=== PATIENT | male | born 1950 | race African-American/Black ===

== ENCOUNTER 2019-07-14 16:27 | Inpatient (IN) | payer MEDICARE ==
[~2019-07-14] VITALS: Ht 190.5 cm; Wt 99.8 kg
[2019-07-14 17:39] VITALS: BP 171/81
[2019-07-14 17:43] LABS: HEMATOCRIT 23.5 % (42.0-54.0); MCH 22.5 pg (26.0-34.0); MCHC 30.2 g/dL (31.0-37.0); MCV 74.4 fL (80.0-100.0); MEAN PLATELET VOLUME 9.9 fL (7.4-10.4); PLATELET COUNT 291 10x3/uL (130-400); RBC 3.16 10x6/uL (4.20-6.10); RDW 16.3 % (11.5-14.5); WBC 7.8 10x3/uL (4.8-10.8)
[2019-07-14 17:52] LABS: APTT 42.6 SECONDS (22.8-39.4); INR 1.57 (0.85-1.17); PROTIME 18.2 SECONDS (11.6-15.0)
[2019-07-14 17:58] LABS: ALBUMIN 3.4 g/dL (3.4-5.0); ALKALINE PHOSPHATASE 117 U/L (46-116); ALT (SGPT) 16 U/L (10-68); BILIRUBIN - TOTAL 0.63 mg/dL (0.2-1.3); CALC OSMOLALITY 297 mosm/kg (275-300); CALCIUM 8.2 mg/dL (8.5-10.1); CARBON DIOXIDE 32.7 mmol/L (21.0-32.0); CHLORIDE - SERUM 104 mmol/L (98-107); CREATININE - SERUM 3.2 mg/dL (0.6-1.3); GLUCOSE 141 mg/dL (74-106); POTASSIUM - SERUM 4.1 mmol/L (3.5-5.1); PROTEIN - SERUM 8.5 g/dL (6.4-8.2); SODIUM 143 mmol/L (136-145); UREA NITROGEN 44 mg/dL (7-18); eGFR NON AFRICAN AMERICAN 21 mL/min (90-120)
[2019-07-14 18:08] LABS: HEMOGLOBIN 7.1 g/dL (13.5-17.5)
[2019-07-14 18:09] LABS: CKMB 1.9 U/L (0.0-3.6); CREATINE KINASE 382 UL (21-232); D-DIMER-QUANTITATIVE 7.84 ug/mLFEU (0.20-0.54); MAGNESIUM - SERUM 2.2 mg/dL (1.8-2.4); PRO BNP 7564 pg/mL (0-125); TROPONIN-I < 0.017 ng/mL (0.000-0.060)
[2019-07-14 18:43] LABS: EOSINOPHILS 5 % (0-7); LYMPHOCYTES 37 % (15-50); MONOCYTES 1 % (2-11); NEUTROPHILS 57 % (40-80); PLATELET ESTIMATE NORMAL
--- NOTE | 2019-07-14 19:11 | NUR ---
SPOKE WITH PM CHARGE NURSE TO INFORM HER THAT WE WOULD START ANOTHER IV FOR CTA TEST AND THEN TRANSPORT PATIENT TO INPATIENT ROOM.
--- NOTE | 2019-07-14 19:35 | NUR ---
PT ARRIVES TO ROOM VIA MULTIPLE ASSIST TO PUT IN BED IMEDIATYELY XRAY REMOVED PT FOR TESTS.
--- NOTE | 2019-07-14 20:52 | NUR ---
PT RETURNS TO ROOM CLEANED BED LOW AND CALL LIGHT TELEMETRY APPLIED AND CONSENTS FOR BLOOD WORK GOTTEN
--- NOTE | 2019-07-14 21:12 | NUR ---
BLOOD HAS BEEN INITIATED BY RN
--- NOTE | 2019-07-14 22:56 | NUR ---
PT TOLERATING WELL LCTA AND SKIN WARM AND DRY BLOOD CONTINUES TO INFUSE WITH NO REACTION
[2019-07-15] VITALS: BP 142/80
[2019-07-15 04:30] VITALS: BP 163/70
--- NOTE | 2019-07-15 07:05 | NUR ---
REPORT RECEIVED. HE IS ALERT WITH AT BEDSIDE. O2 ON AT 2L/M PER N/C. CL IN REACH DENIES ANY CURRENT NEEDS RESP EVEN WITHOUT LABOR. SALINE LOCK INTACT TO RIGHT A/C AND LEFT UPPER ARM. BED IN LOWEST POSITION AND LOCKED. CAREPLAN REVIEW DONE WITH SAFETY PRECAUTIONS IN PLACE
[2019-07-15 07:12] LABS: BASOPHILS 0.4 % (0-2); EOSINOPHILS 3.9 % (0-7); IMMATURE GRANULOCYTES 0.4 % (0-5); LYMPHOCYTES 10.5 % (15-50); MCH 22.8 pg (26.0-34.0); MCV 75.9 fL (80.0-100.0); MEAN PLATELET VOLUME 9.5 fL (7.4-10.4); MONOCYTES 24.3 % (2-11); NEUTROPHILS 60.5 % (40-80); PLATELET COUNT 254 10x3/uL (130-400); RBC 3.16 10x6/uL (4.20-6.10); RDW 16.8 % (11.5-14.5); WBC 8.4 10x3/uL (4.8-10.8)
[2019-07-15 07:13] LABS: HEMOGLOBIN 7.2 g/dL (13.5-17.5)
[2019-07-15 07:21] LABS: ALBUMIN 3.2 g/dL (3.4-5.0); ANION GAP 13.6 mmol/L (8-16); BILIRUBIN - TOTAL 0.81 mg/dL (0.2-1.3); CALCIUM 7.9 mg/dL (8.5-10.1); CARBON DIOXIDE 28.9 mmol/L (21.0-32.0); CREATININE - SERUM 2.8 mg/dL (0.6-1.3); POTASSIUM - SERUM 3.5 mmol/L (3.5-5.1); PROTEIN - SERUM 8.1 g/dL (6.4-8.2)
[2019-07-15 09:13] VITALS: BP 187/70
[2019-07-15 13:16] LABS: CHOL - HDL RATIO 1.9 ratio (2.3-4.9); LDL-HDL RATIO 0.7 ratio (1.5-3.5); MAGNESIUM - SERUM 1.9 mg/dL (1.8-2.4); PHOSPHOROUS 4.2 mg/dL (2.5-4.9)
[2019-07-15 13:17] LABS: COMPLEMENT C4 18.7 mg/dL (17.4-52.2)
[2019-07-15 13:36] VITALS: BP 180/95
--- NOTE | 2019-07-15 14:20 | NUR ---
BLOOD STARTED AT THIS TIME MAX WELL REMAINS WITH WHOLE BODY EDEMA. SCROTUM IS ELEVATED UP ON A ROLLED UP TOWEL DUE TO EDEMA
[2019-07-15 14:48] VITALS: BMI 37.2
--- NOTE | 2019-07-15 16:30 | NUR ---
BLOOD IS COMPLETED AT THIS TIME. BUMEX DRIP WAS RESTARTED. VSS HE OFFERS NO C/O
[2019-07-15 18:12] VITALS: BP 151/88
--- NOTE | 2019-07-15 19:10 | NUR ---
EVENING ROUNDS COMPLETE. PT LAYING IN BED. FAMILY AT BEDSIDE. NO SIGNS OF DISTRESS. PT HAS PAIN 7/10 AT THIS TIME. PRN NORCO GIVEN ALREADY AT 1545. PT UNDERSTOOD. PT DENIES ANY NEEDS AT THIS TIME. CL IN REACH. BED IN LOWEST POSITION.
[2019-07-15 20:00] VITALS: BP 175/88
[2019-07-15 21:52] LABS: APPEARANCE CLEAR (CLEAR); BILIRUBIN NEGATIVE (NEGATIVE); COLOR YELLOW (YELLOW); GLUCOSE NEGATIVE (NEGATIVE); KETONE NEGATIVE (NEGATIVE); NITRITE NEGATIVE (NEGATIVE); PROTEIN 1+ mg/dL (NEGATIVE); RED CELLS - URINE 0-5 /hpf (0-5); UROBILINOGEN NORMAL (NORMAL); WHITE CELLS - URINE OCC /hpf (NEGATIVE)
[2019-07-16] VITALS: BP 190/91
--- NOTE | 2019-07-16 01:00 | NUR ---
PAGED DR WETZEL FOR BP OF 185/103. SEE NEW ORDERS AT THIS TIME.
[2019-07-16 04:00] VITALS: BP 135/87
--- NOTE | 2019-07-16 04:40 | NUR ---
DR WETZEL PAGED DUE TO PT COUGHING UP RED TINGED SPUTUM. DR WETZEL ORDERED TO HOLD ELIQUIS AT THIS TIME UNTIL RESTARTED, STAT PT WITH INR.
[2019-07-16 05:38] LABS: BASOPHILS 0.2 % (0-2); EOSINOPHILS 1.6 % (0-7); HEMATOCRIT 26.6 % (42.0-54.0); HEMOGLOBIN 8.1 g/dL (13.5-17.5); IMMATURE GRANULOCYTES 0.5 % (0-5); LYMPHOCYTES 4.8 % (15-50); MCH 23.3 pg (26.0-34.0); MCHC 30.5 g/dL (31.0-37.0); MCV 76.4 fL (80.0-100.0); MEAN PLATELET VOLUME 9.2 fL (7.4-10.4); MONOCYTES 15.5 % (2-11); NEUTROPHILS 77.4 % (40-80); PLATELET COUNT 253 10x3/uL (130-400); RBC 3.48 10x6/uL (4.20-6.10); RDW 16.9 % (11.5-14.5)
[2019-07-16 05:42] LABS: WBC 14.6 10x3/uL (4.8-10.8)
[2019-07-16 05:54] LABS: INR 1.51 (0.85-1.17); PROTIME 17.6 SECONDS (11.6-15.0)
[2019-07-16 06:25] LABS: % SATURATION 8 % (15-55); IRON 30 ug/dl (35-150); TOTAL IRON BIND CAPACITY 362 ug/dl (260-445); UNSAT IRON BIND CAPACITY 332 ug/dl (150-375)
[2019-07-16 06:47] LABS: ALBUMIN 3.3 g/dL (3.4-5.0); ANION GAP 16.7 mmol/L (8-16); BILIRUBIN - TOTAL 1.42 mg/dL (0.2-1.3); CALCIUM 7.8 mg/dL (8.5-10.1); CARBON DIOXIDE 28.8 mmol/L (21.0-32.0); CREATININE - SERUM 2.1 mg/dL (0.6-1.3); LDL-HDL RATIO 0.7 ratio (1.5-3.5); POTASSIUM - SERUM 3.5 mmol/L (3.5-5.1); PROTEIN - SERUM 8.5 g/dL (6.4-8.2); THYROID STIMULATING HORMONE 2.46 uIU/mL (0.36-3.74)
--- NOTE | 2019-07-16 07:21 | NUR ---
REPORT RECEIVED. WILL CONTINUE WITH POC. PT CURRENTLY LYING SUPINE. CALL LIGHT W/I REACH. RR EVEN AND UNLABORED ON 3L 02. BUMEX INFUSING @5ML/HR VIA L.UPPER ARM PIV. NO S/S OF DISTRESS NOTED. PT DENIES ANY NEEDS. WILL CTM.
--- NOTE | 2019-07-16 09:40 | NUR ---
CALLED PHARMACY TO VERIFY THAT AMIODORONE AND BUMEX ARE COMPATIBLE AND THEY ARE BY WAY OF Y-SITE. BEGAN INFUSION OF AMIODORONE @33.3ML/HR OR 1MG/MIN VIA Y-SITE OF LEFT FOREARM PIV. PT MOANS OUT AND C/O N/V. ADMININSTERED ORDERED DOSE OF ZOFRAN. WILL CTM. AT BEDSIDE.
[2019-07-16 10:44] VITALS: BP 189/87
[2019-07-16 12:09] LABS: ANA REFLEX - ANTICHROMATIN ABS 0.3 AI (0.0-0.9); ANA REFLEX - CENTROMERE B ABS <0.2 AI (0.0-0.9); ANA REFLEX - DBL STRANDED DNA <1 IU/mL (0-9); ANA REFLEX - DIRECT Positive (Negative); ANA REFLEX - JO-1 AB <0.2 AI (0.0-0.9); ANA REFLEX - RNP ANTIBODIES 3.4 AI (0.0-0.9); ANA REFLEX - SCL-70 <0.2 AI (0.0-0.9); ANA REFLEX - SJOGRENS AB SSA <0.2 AI (0.0-0.9); ANA REFLEX - SJOGRENS AB SSB <0.2 AI (0.0-0.9); ANA REFLEX - SMITH AB <0.2 AI (0.0-0.9)
--- NOTE | 2019-07-16 12:55 | NUR ---
CHOWDHURY CATHETER PLACED. IMMEDIATE 200ML OF DARK CONCENTRATED URINE RETURNED. PT TOLERATED WELL. SPECIMENS SENT TO LAB. WILL CTM.
[2019-07-16 13:10] LABS: SPE - A/G RATIO 0.7 (0.7-1.7); SPE - ALBUMIN 3.2 g/dL (2.9-4.4); SPE - ALPHA-1 GLOBULIN 0.4 g/dL (0.0-0.4); SPE - ALPHA-2 GLOBULIN 0.8 g/dL (0.4-1.0); SPE - BETA GLOBULIN 1.6 g/dL (0.7-1.3); SPE - GAMMA GLOBULIN 1.8 g/dL (0.4-1.8); SPE - M-SPIKE 0.3 g/dL (Not Observed); SPE - TOTAL PROTEIN 7.9 g/dL (6.0-8.5)
--- NOTE | 2019-07-16 13:29 | NUR ---
I have reviewed this patient and I concur with the Shift Assessment completed by the Licensed Practical Nurse today this shift.
[2019-07-16 13:36] LABS: PRO/CRE RATIO URINE 5.1 mg/g; PROTEIN - URINE 192.1 mg/dL (0.0-11.9)
[2019-07-16 13:56] VITALS: BP 198/94
--- NOTE | 2019-07-16 19:25 | NUR ---
ASSESSMENT COMPLETE, PT IN BED RESTING, RESPERATIONS NON-LABORED ON O2 AT 3 LITERS VIA NC. IV TO LEFT UPPER ARM WITH AMIODERONE INFUSING AT 17 CC/HR AND BUMEX AT 5 CC/HR, IV SITE CLEAN AND DRY. CHOWDHURY DRAINING TO GRAVITY, PINK TINGED COLOR URINE NOTED IN COLLECTION BAG. PT DENIES PAIN OR NEEDS AT THIS TIME, BED LOW, CL IN REACH.
[2019-07-16 20:00] VITALS: BP 204/89
--- NOTE | 2019-07-16 23:26 | NUR ---
SPOKE WITH SUNITA FROM RT, ASKED IF SHE COULD ASSIST PT WITH USE OF HIS TRILOGY.
--- NOTE | 2019-07-16 23:31 | NUR ---
RT AT BED SIDE, PLACED PT ON HOME TRILOGY.
--- NOTE | 2019-07-16 23:45 | NUR ---
PT ON CONTINOUS PULSE OX, 02 SATS AT 82-85%, SPOKE WITH RT SUNITA, PT PLACED BACK ON NS AT 3 LITERS. O2 SATS 94-96%.
[2019-07-17] VITALS (7 sets, daily range): BP systolic 185–199; BP diastolic 80–100; Ht 190.5 cm; Wt 99.8 kg
--- NOTE | 2019-07-17 03:48 | NUR ---
NOTIFIED BY MT THAT PT HAS CONVERTED TO SR WITH A HEART RATE 85.
[2019-07-17 10:58] LABS: BASOPHILS 0.2 % (0-2); HEMATOCRIT 27.5 % (42.0-54.0); HEMOGLOBIN 8.3 g/dL (13.5-17.5); IMMATURE GRANULOCYTES 0.7 % (0-5); LYMPHOCYTES 8.2 % (15-50); MCH 23.2 pg (26.0-34.0); MCHC 30.2 g/dL (31.0-37.0); MEAN PLATELET VOLUME 9.8 fL (7.4-10.4); MONOCYTES 12.4 % (2-11); NEUTROPHILS 75.5 % (40-80); PLATELET COUNT 243 10x3/uL (130-400); RBC 3.57 10x6/uL (4.20-6.10); RDW 17.4 % (11.5-14.5); WBC 12.7 10x3/uL (4.8-10.8)
[2019-07-17 11:05] LABS: ANION GAP 7.4 mmol/L (8-16); CALCIUM 8.1 mg/dL (8.5-10.1); CARBON DIOXIDE 34.6 mmol/L (21.0-32.0); CREATININE - SERUM 2.2 mg/dL (0.6-1.3)
--- NOTE | 2019-07-17 13:31 | NUR ---
Nutrition Follow-up: Pt reports poor appetite/PO intake and c/o abd pain and nausea. Last BM on Sat. Agreed to try Nepro; sent with lunch today. Diet: Renal ADA, 2000 mL fluid restriction Wt: 250.9# (wt on 07/16 was 272.2#) Labs noted: K+ 3.0, Glu 188, A1C 7.1 Meds noted: Bumex, KDur, Humulin, Levemir, Colace -Continue current diet as tolerated. -Monitor wt trends. -RD following.
[2019-07-17 14:09] LABS: UPE RAND - ALBUMIN 60.4 % (()); UPE RAND - ALPHA 1 GLOBULIN 5.4 % (()); UPE RAND - ALPHA 2 GLOBULIN 7.9 % (()); UPE RAND - BETA GLOBULIN 16.4 % (())
--- NOTE | 2019-07-17 16:21 | MORECARE ---
CASE MANAGEMENT DISCHARGE SUMMARY PATIENT: DEX MOSQUEDA UNIT: [id number] ADM DATE: 07/14/19 AGE: 68 : 49 SEX: M ROOM/BED: D.2119 AUTHOR: MARIUM ALARCON PHYSICIAN: REFERRING PHYSICIAN: SONG WETZEL MD DATE OF SERVICE: 07/17/19 Discharge Plan Patient Name: DEX MOSQUEDA Facility: [facility]:[place] : 1950 Planned Disposition: Anticipated Discharge Date: Discharge Date: Expected LOS: Initial Reviewer: [email or web address] Initial Review Date: 07/17/2019 Generated: 07/17/19 5:21 pm Comments DCP- Discharge Planning Updated by [email or web address]: Miranda Deutsch on 07/17/19 3:[address] Patient Name: DEX MOSQUEDA Admission Status: ER Accout number: [id number] Admission Date: 07-14-2019 : 1950 Admission Diagnosis: Attending: SONG WETZEL Current LOS: 3 Anticipated DC Date: Planned Disposition: Primary Insurance: MEDICARE A & B Discharge Planning Comments: PATIENT IS CONFUSED. CM SPOKE WITH DEEP AT [facility] AND THEY WILL TAKE PATIENT BACK TO PENITENTIARY CARE. CM WILL FOLLOW AND ASSIST. Teaching Aide: Miranda Deutsch DCPIA - Discharge Planning Initial Assessment Updated by [id number]: Miranda Deutsch on 07/17/19 4:16 pm * Is the patient Alert and Oriented? No * Preadmission Environment [facility] * Facility Name [facility] * Additional services required to return to the preadmission environment? No * Can the patient safely return to the preadmission environment? Yes Patient Name: DEX MOSQUEDA Page 99067 at 1621 All edits/amendments must be made on the electronic document DICTATION DATE: 07/17/191620 SEISMIC PROSPECTING OBSERVER HELPER: ROSALINA 07/17/191620 RPT#: [id number] DC DATE: STATUS: ADM IN [facility] [address] [place] [address] END OF REPORT
--- NOTE | 2019-07-17 19:59 | NUR ---
RECIEVED BEDSIDE SHIFT REPORT. ALERT AND CONFUSED. C/O PAIN ALL OVER AND RATES A DOUBLE ZERO. EXPLAINED RATING SYSTM AND STILL REPORTS 00. WHEN ASKED AGAIN IF HE WAS IN PAIN STATED "YES". NORCO GIVEN PER ORDERS. MEDICATION EFFECTIVE AND FAMILY AT BEDSIDE AT THIS TIME. O2@ [address] TELEMETRY IN PLACE, F/C INTACT WITH CLEAR YELLOW URINE DRAINING TO BEDSIDE DRAINAGE SYSTEM. DENIES ANY OTHER NEEDS.
[2019-07-18] VITALS: BP 178/85
[2019-07-18 04:00] VITALS: BP 189/91
--- NOTE | 2019-07-18 07:35 | NUR ---
SLEEPING WITH BI PAP ON. NO DISTRESS NOTED. TELEMERTY SHOWS SR 87. CHOWDHURY CATH PATENT TO GRAVITY BAG. PT IS WHEELCHAIR BOUND. SR UP WITH CALL LIGHT IN REACH. WILL MONITOR
[2019-07-18 08:19] VITALS: BP 202/99
--- NOTE | 2019-07-18 10:03 | NUR ---
I have reviewed this patient and I concur with the Shift Assessment completed by the Licensed Practical Nurse today this shift.
[2019-07-18 11:41] VITALS: BP 188/97
[2019-07-18 11:47] LABS: ANION GAP 6.3 mmol/L (8-16); CALCIUM 8.3 mg/dL (8.5-10.1); CARBON DIOXIDE 35.7 mmol/L (21.0-32.0)
--- NOTE | 2019-07-18 18:01 | NUR ---
LYING QUIETLY WITH FAMILY AT SIDE, DENIES ANY NEEDS. SR UP WITH CALL LIGHT IN REACH. IRON INFUSING WELL
[2019-07-18 19:48] VITALS: BP 188/95
[2019-07-19 05:22] LABS: BASOPHILS 0.3 % (0-2); EOSINOPHILS 6.9 % (0-7); HEMATOCRIT 27.5 % (42.0-54.0); HEMOGLOBIN 8.2 g/dL (13.5-17.5); IMMATURE GRANULOCYTES 0.3 % (0-5); LYMPHOCYTES 7.7 % (15-50); MCH 23.2 pg (26.0-34.0); MCHC 29.8 g/dL (31.0-37.0); MCV 77.9 fL (80.0-100.0); MEAN PLATELET VOLUME 10.1 fL (7.4-10.4); MONOCYTES 12.7 % (2-11); NEUTROPHILS 72.1 % (40-80); PLATELET COUNT 279 10x3/uL (130-400); RBC 3.53 10x6/uL (4.20-6.10); WBC 11.6 10x3/uL (4.8-10.8)
[2019-07-19 05:28] LABS: ANION GAP 6.4 mmol/L (8-16); CALCIUM 8.2 mg/dL (8.5-10.1); CARBON DIOXIDE 35.7 mmol/L (21.0-32.0); CREATININE - SERUM 1.7 mg/dL (0.6-1.3); POTASSIUM - SERUM 3.1 mmol/L (3.5-5.1)
[2019-07-19 07:52] VITALS: BP 204/106
[2019-07-19 12:00] VITALS: BP 196/103
--- NOTE | 2019-07-19 15:33 | NUR ---
PT RESTING COMFORTABLY IN BED, DENIES ANY NEEDS AT THIS TIME. CALL LIGHT IN REACH, NAD NOTED, WILL CONTINUE TO MONITOR.
[2019-07-19 15:47] VITALS: BP 192/97
[2019-07-19 20:00] VITALS: BP 129/71
--- NOTE | 2019-07-19 20:31 | NUR ---
RECIEVED BEDSIDE SHIFT REPORT. UP IN BED WITH SANDWICH BOX IN FRONT OF HIM. SPOUSE AT BEDSIDE. ALERT AND CONFUSED. REMAINS BEDFAST. O2@ 3 LITERS PER N/C. LUNG SOUNDS DIMINISHED. TELEMETRY IN PLACE. REMAINS ON 2000CC FLUID RESTRICTION. F/C INTACT WITH DARK YELLOW URINE TO BEDSIDE DRAINAGE BAG. DENIES ANY NEEDS AT THIS TIME.
[2019-07-20] VITALS: BP 156/71
--- NOTE | 2019-07-20 03:26 | NUR ---
LYING IN BED WITH EYES CLOSED AND BIPAP ON. SPOUSE AT BEDSIDE.
[2019-07-20 05:50] LABS: BASOPHILS 0.2 % (0-2); EOSINOPHILS 5.1 % (0-7); IMMATURE GRANULOCYTES 0.5 % (0-5); LYMPHOCYTES 9.3 % (15-50); MCH 23.3 pg (26.0-34.0); MCHC 29.6 g/dL (31.0-37.0); MCV 78.5 fL (80.0-100.0); MEAN PLATELET VOLUME 10.1 fL (7.4-10.4); MONOCYTES 12.5 % (2-11); NEUTROPHILS 72.4 % (40-80); PLATELET COUNT 283 10x3/uL (130-400); RBC 3.44 10x6/uL (4.20-6.10); RDW 19.5 % (11.5-14.5); WBC 10.3 10x3/uL (4.8-10.8)
[2019-07-20 06:29] LABS: ANION GAP 10.7 mmol/L (8-16); CARBON DIOXIDE 31.3 mmol/L (21.0-32.0); CREATININE - SERUM 1.8 mg/dL (0.6-1.3)
--- NOTE | 2019-07-20 08:27 | MORECARE ---
CASE MANAGEMENT DISCHARGE SUMMARY PATIENT: DEX MOSQUEDA UNIT: [id number] ADM DATE: 07/14/19 AGE: 68 : 49 SEX: M ROOM/BED: D.2119 AUTHOR: MARIUM ALARCON PHYSICIAN: REFERRING PHYSICIAN: SONG WETZEL MD DATE OF SERVICE: 07/20/19 Discharge Plan Patient Name: DEX MOSQUEDA Facility: [facility]:[place] : 1950 Planned Disposition: Anticipated Discharge Date: Discharge Date: Expected LOS: Initial Reviewer: [email or web address] Initial Review Date: 07/17/2019 Generated: 07/20/19 9:27 am Comments DCP- Discharge Planning Updated by [email or web address]: Miranda Deutsch on 07/17/19 3:[address] Patient Name: DEX MOSQUEDA Admission Status: ER Accout number: [id number] Admission Date: 07-14-2019 : 1950 Admission Diagnosis: Attending: SONG WETZEL Current LOS: 3 Anticipated DC Date: Planned Disposition: Primary Insurance: MEDICARE A & B Discharge Planning Comments: PATIENT IS CONFUSED. CM SPOKE WITH DEEP AT [facility] AND THEY WILL TAKE PATIENT BACK TO NURSING HOME CARE. CM WILL FOLLOW AND ASSIST. Movement Education Specialist: Miranda Deutsch DCPIA - Discharge Planning Initial Assessment Updated by [email or web address]: Miranda Deutsch on 07/17/19 4:16 pm * Is the patient Alert and Oriented? No * Preadmission Environment Detention Acute Care Facility * Facility Name [facility] * Additional services required to return to the preadmission environment? No * Can the patient safely return to the preadmission environment? Yes External Providers External Provider: [facility] Next Contact Date: 07/20/2019 Service Request Date: Service Type: Resolution: Reviewer: Comments: Last DP export: 07/17/19 3:21 Patient Name: DEX MOSQUEDA Page 30672 at 0827 All edits/amendments must be made on the electronic document DICTATION DATE: 07/20/19826 LAB ANALYST: ROSALINA 07/20/19826 RPT#: [id number] DC DATE: STATUS: ADM IN [facility] [address] [address] END OF REPORT
--- NOTE | 2019-07-20 08:43 | MORECARE ---
CASE MANAGEMENT DISCHARGE SUMMARY PATIENT: DEX MOSQUEDA UNIT: [id number] ADM DATE: 07/14/19 AGE: 68 : 49 SEX: M ROOM/BED: D.7839 AUTHOR: AGNESDOC PHYSICIAN: REFERRING PHYSICIAN: SONG WETZEL MD DATE OF SERVICE: 07/20/19 Discharge Plan Patient Name: DEX MOSQUEDA Facility: [facility]:[place] : 1950 Planned Disposition: Nursing Facility [facility] Cert Anticipated Discharge Date: Discharge Date: Expected LOS: Initial Reviewer: [email or web address] Initial Review Date: 07/17/2019 Generated: 07/20/19 9:43 am Comments DCP- Discharge Planning Updated by [email or web address]: Nadir Mauricio on 07/20/19 7:[address] Patient Name: DEX MOSQUEDA Encounter No: [id number] : 1950 Primary Insurance: MEDICARE A & B Anticipated DC Date: Planned Disposition: Nursing Facility [facility] Cert External Planned Provider: [facility], LONG TERM CARE MEDICAID BED DCP follow-up note: CM FAXED UPDATE TO [facility] AT [phone]. FOR DISCHARGE BACK TO [facility] AT [facility], FAX DISCHARGE INFORMATION TO [phone]. NURSE REPORT TO BE CALLED TO [facility] AT [phone]. [facility] TO ARRANGE VAN TRANSPORTATION. AURA Choi DCP- Discharge Planning Updated by [email or web address]: Miranda Deutsch on 07/17/19 3:[address] Patient Name: DEX MOSQUEDA Admission Status: ER Accout number: [id number] Admission Date: 07-14-2019 : 1950 Admission Diagnosis: Attending: SONG WETZEL Current LOS: 3 Anticipated DC Date: Planned Disposition: Primary Insurance: MEDICARE A & B Discharge Planning Comments: PATIENT IS CONFUSED. CM SPOKE WITH DEEP AT [facility] AND THEY WILL TAKE PATIENT BACK TO [facility]. CM WILL FOLLOW AND ASSIST. Chair And Couch Maker: Miranda Deutsch DCPIA - Discharge Planning Initial Assessment Updated by [email or web address]: Miranda Deutsch on 07/17/19 4:16 pm * Is the patient Alert and Oriented? No * Preadmission Environment [facility] * Facility Name [facility] * Additional services required to return to the preadmission environment? No * Can the patient safely return to the preadmission environment? Yes Last DP export: 07/20/19 7:27 Patient Name: DEX MOSQUEDA Page 29454 at 0843 All edits/amendments must be made on the electronic document DICTATION DATE: 07/20/19842 GLASS ETCHER HELPER: ROSALINA 07/20/19842 RPT#: [id number] DC DATE: STATUS: ADM IN [facility] [address] [place] [address] END OF REPORT
[2019-07-20 09:04] VITALS: BP 145/80
--- NOTE | 2019-07-20 14:02 | NUR ---
TELEMETRY SR. RESP UL ON 02 3L VA. LUCIANA INTACT. AT BS. WILL CONT. PLAN OF CARE.
[2019-07-20 15:55] VITALS: BP 173/96
[2019-07-20 18:15] VITALS: BP 172/80
--- NOTE | 2019-07-20 19:33 | NUR ---
RECIEVED BEDSIDE REPORT. ALERT AND CONFUSED. DOES NOT ANSWER SOME QUESTIONS. SPOUSE AT BEDSIDE. O2@ 3 LITERS PER N/C IN PLACE. F/C INTACT WITH STRAW COLOR URINE DRAINING TO BEDSIDE DRAINAGE SYSTEM. REMAINS ON 2000 CC FLUID RESTRICTION. TELEMETRY IN PLACE. +3 PITTING EDEMA TO LOWER EXTREMITIES AND C/O PAIN UPON ASSESSMENT. DENIES ANY NEEDS AT THIS TIME.
[2019-07-20 20:00] VITALS: BP 129/71
[2019-07-21] VITALS: BP 149/79
[2019-07-21 04:27] VITALS: BP 155/76
[2019-07-21 05:20] LABS: BASOPHILS 0.2 % (0-2); EOSINOPHILS 4.9 % (0-7); HEMATOCRIT 28.5 % (42.0-54.0); HEMOGLOBIN 8.6 g/dL (13.5-17.5); IMMATURE GRANULOCYTES 0.4 % (0-5); LYMPHOCYTES 8.6 % (15-50); MCHC 30.2 g/dL (31.0-37.0); MCV 79.6 fL (80.0-100.0); MEAN PLATELET VOLUME 10.3 fL (7.4-10.4); MONOCYTES 11.8 % (2-11); NEUTROPHILS 74.1 % (40-80); PLATELET COUNT 303 10x3/uL (130-400); RBC 3.58 10x6/uL (4.20-6.10); RDW 20.2 % (11.5-14.5); WBC 11.3 10x3/uL (4.8-10.8)
[2019-07-21 05:39] LABS: ANION GAP 12.5 mmol/L (8-16); CALCIUM 8.3 mg/dL (8.5-10.1); CARBON DIOXIDE 28.7 mmol/L (21.0-32.0); CREATININE - SERUM 2.1 mg/dL (0.6-1.3); POTASSIUM - SERUM 3.2 mmol/L (3.5-5.1)
[2019-07-21 09:04] VITALS: BP 156/76
[2019-07-21 12:59] VITALS: BP 141/67
--- NOTE | 2019-07-21 13:39 | NUR ---
Nutrition Follow-up: NPO for EGD today. Per 07/20 MD note, pt continues with poor appetite, intermittent nausea, and abd pain worse after eating. Wt: 244# on 07/19 (down from 250.9# on 07/17; pt being diuresed) Last BM: 07/18 per chart Labs noted: Glu 143, K+ 3.2 Meds noted: Bumex, KDur, Mag Sulfate, Colace, Humulin -Rec resume diet following procedure. -Will monitor PO intake/tolerance.
--- NOTE | 2019-07-21 13:47 | NUR ---
PRE-OPS GIVEN. TO GI LAB BY BED.
[2019-07-21 16:50] VITALS: BP 171/88
--- NOTE | 2019-07-21 19:32 | NUR ---
RECEIVED BEDSIDE REPORT. PATIENT IS ALERT AND ORIENTED, SITTING UP IN BED FINISHING DINNER. RESPIRATIONS ARE EVEN AND UNLABORED. NO S/S OF DISTRESS. NO C/O PAIN. NEES MET. CALL LIGHT WITHIN REACH. WILL CPOC.
[2019-07-21 20:00] VITALS: BP 131/80
[2019-07-22] VITALS (7 sets, daily range): BP systolic 147–180; BP diastolic 74–92
[2019-07-22 07:08] LABS: BASOPHILS 0.2 % (0-2); EOSINOPHILS 5.7 % (0-7); HEMATOCRIT 28.8 % (42.0-54.0); HEMOGLOBIN 8.6 g/dL (13.5-17.5); IMMATURE GRANULOCYTES 0.4 % (0-5); LYMPHOCYTES 7.9 % (15-50); MCH 23.8 pg (26.0-34.0); MCHC 29.9 g/dL (31.0-37.0); MCV 79.6 fL (80.0-100.0); MEAN PLATELET VOLUME 10.5 fL (7.4-10.4); MONOCYTES 12.4 % (2-11); NEUTROPHILS 73.4 % (40-80); PLATELET COUNT 305 10x3/uL (130-400); RBC 3.62 10x6/uL (4.20-6.10); RDW 21.1 % (11.5-14.5); WBC 11.6 10x3/uL (4.8-10.8)
[2019-07-22 07:13] LABS: ANION GAP 10.8 mmol/L (8-16); CALCIUM 8.3 mg/dL (8.5-10.1); CARBON DIOXIDE 27.7 mmol/L (21.0-32.0); POTASSIUM - SERUM 3.5 mmol/L (3.5-5.1)
--- NOTE | 2019-07-22 13:24 | NUR ---
TELEMETRY SR. RESP UL ON 02 3L NC. BLADDER TRAING STARTED. DUCOLAX SUPP GIVEN. WILL CONT. PLAN OF CARE.
--- NOTE | 2019-07-22 16:54 | NUR ---
GOOD RESULTS FROM DUCOLAX NOTED.
--- NOTE | 2019-07-22 17:53 | MORECARE ---
CASE MANAGEMENT DISCHARGE SUMMARY PATIENT: DEX MOSQUEDA UNIT: [id number] ADM DATE: 07/14/19 AGE: 68 : 49 SEX: M ROOM/BED: D.7919 AUTHOR: AGNES,DOC PHYSICIAN: REFERRING PHYSICIAN: SONG WETZEL MD DATE OF SERVICE: 07/22/19 Discharge Plan Patient Name: DEX MOSQUEDA Facility: [facility]:[place] : 1950 Planned Disposition: Nursing Facility [facility] Cert Anticipated Discharge Date: Discharge Date: Expected LOS: Initial Reviewer: [email or web address] Initial Review Date: 07/17/2019 Generated: 07/22/19 6:52 pm Comments DCP- Discharge Planning Updated by [email or web address]: Nadir Mauricio on 07/22/19 4:[address] Patient Name: DEX MOSQUEDA Encounter No: [id number] : 1950 Primary Insurance: MEDICARE A & B Anticipated DC Date: Planned Disposition: Nursing Facility [facility] Cert External Planned Provider: [facility], LONG TERM CARE MEDICAID BED DCP follow-up note: CM RECEIVED CALL FROM YUNIOR OF [employer] REQUESTING UPDATE. DEEP OF [employer] ARRIVED LATER, RECEIVED UPDATE VERBALLY FROM HAILE LYNCH. CM FAXED UPDATE TO [facility] AT [phone]. FOR DISCHARGE BACK TO [facility] AT [facility], FAX DISCHARGE INFORMATION TO [phone]. NURSE REPORT TO BE CALLED TO [facility] AT [phone]. [facility] TO ARRANGE VAN TRANSPORTATION. AURA Choi MANAGEMENT DCP- Discharge Planning Updated by [id number]: Nadir Mauricio on 07/20/19 7:[address] Patient Name: DEX MOSQUEDA Encounter No: [id number] : 1950 Primary Insurance: MEDICARE A & B Anticipated DC Date: Planned Disposition: Nursing Facility [facility] Cert External Planned Provider: [facility], LONG TERM CARE MEDICAID BED DCP follow-up note: CM FAXED UPDATE TO [facility] AT [phone]. FOR DISCHARGE BACK TO [facility] AT [facility], FAX DISCHARGE INFORMATION TO [phone]. NURSE REPORT TO BE CALLED TO [facility] AT [phone]. [facility] TO ARRANGE VAN TRANSPORTATION. Nadir Mauricio, CASE MANAGEMENT DCP- Discharge Planning Updated by [email or web address]: Miranda Deutsch on 07/17/19 3:[address] Patient Name: DEX MOSQUEDA Admission Status: ER Accout number: [id number] Admission Date: 07-14-2019 : 1950 Admission Diagnosis: Attending: SONG WETZEL Current LOS: 3 Anticipated DC Date: Planned Disposition: Primary Insurance: MEDICARE A & B Discharge Planning Comments: PATIENT IS CONFUSED. CM SPOKE WITH DEEP AT [facility] AND THEY WILL TAKE PATIENT BACK TO [facility]. CM WILL FOLLOW AND ASSIST. Pillowcase Turner: Miranda Deutsch DCPIA - Discharge Planning Initial Assessment Updated by [email or web address]: Miranda Deutsch on 07/17/19 4:16 pm * Is the patient Alert and Oriented? No * Preadmission Environment Senior Living Acute Care Facility * Facility Name [facility] * Additional services required to return to the preadmission environment? No * Can the patient safely return to the preadmission environment? Yes Last DP export: 07/20/19 7:43 Patient Name: DEX MOSQUEDA Page 04610 at 1753 All edits/amendments must be made on the electronic document DICTATION DATE: 07/22/191751 AIRPORT SHUTTLE DRIVER: ROSALINA 07/22/191751 RPT#: [id number] DC DATE: STATUS: ADM IN [facility] [address] [place] [address] END OF REPORT
--- NOTE | 2019-07-22 19:06 | NUR ---
RECEIVED BEDSIDE REPORT. PATIENT IS ALERT AND ORIENTED X 2. RESPIRATIONS ARE EVEN AND UNLABORED. NO S/S OF DISTRESS. NO C/O PAIN. CALL LIGHT WITHIN REACH. WILL CPOC.
[2019-07-23 04:24] LABS: BASOPHILS 0.4 % (0-2); EOSINOPHILS 5.7 % (0-7); HEMATOCRIT 29.6 % (42.0-54.0); IMMATURE GRANULOCYTES 0.5 % (0-5); LYMPHOCYTES 8.5 % (15-50); MCH 24.2 pg (26.0-34.0); MCHC 30.4 g/dL (31.0-37.0); MCV 79.6 fL (80.0-100.0); MEAN PLATELET VOLUME 10.5 fL (7.4-10.4); NEUTROPHILS 72.9 % (40-80); PLATELET COUNT 327 10x3/uL (130-400); RBC 3.72 10x6/uL (4.20-6.10); RDW 21.4 % (11.5-14.5); WBC 13.2 10x3/uL (4.8-10.8)
[2019-07-23 04:30] VITALS: BP 184/96
[2019-07-23 04:31] LABS: ANION GAP 10.3 mmol/L (8-16); CALCIUM 8.4 mg/dL (8.5-10.1); POTASSIUM - SERUM 3.3 mmol/L (3.5-5.1)
--- NOTE | 2019-07-23 07:15 | NUR ---
RECEIVED PT IN BED EYES CLOSED RESP UNLABORED SKIN W/D NAD NOTED
[2019-07-23 08:10] VITALS: BP 189/97
[2019-07-23 11:02] VITALS: BP 173/76
--- NOTE | 2019-07-23 12:34 | NUR ---
Nutrition Follow-up: Pt very sleepy this AM. No family at BS. Per 07/22 MD note, pt with improved appetite. S/p EGD on 07/21; showed reflux induced esophagitis and small hiatal hernia. Diet: Renal ADA PO intake: 45% avg x 5 meals Wt: 221.4# (down from 244# on 07/19) Last BM: 07/22 per chart Labs noted: K+ 3.3, Glu 122 Meds noted: Linzess, Dulcolax, Colace, Reglan, Bumex, KDur, Levemir, Humulin -May consider liberalizing to Cardiac ADA diet. -Pioneer food preferences within diet restrictions. -RD following.
[2019-07-23 15:51] VITALS: BP 170/85
--- NOTE | 2019-07-23 19:22 | NUR ---
RECEIVED BEDSIDE REPORT. PATIENT IS AAO X 2. PATIENT IS ABLE TO ANSWER QUESTIONS WITH A BIT OF A DELAY. PATIENT IS ABLE TO FOLLOW COMMANDS. PATIENT REMAINS ON 3L NC. RESPIRATIONS ARE EVEN AND UNABLRED. NO S/S OF DISTRESS. NO C/O PAIN. NEEDS MET. CALL LIGHT WITHIN REACH. WILL CPOC.
[2019-07-23 20:19] VITALS: BP 136/68
[2019-07-23 23:19] VITALS: BP 107/58
--- NOTE | 2019-07-24 03:09 | NUR ---
PATIENT IV INFILTRATED. PATIENT REFUSING TO ALLOW A NEW IV TO BE INITATED. PATIENT CONTINUES TO PULL ARM AWAY.
[2019-07-24 04:38] VITALS: BP 189/98
--- NOTE | 2019-07-24 07:47 | NUR ---
AWAKE AND ALERT. 02 AT 3 L/M PER NC. NO IV. PT HAS A CHOWDHURY CATH AND IS HAVING BLADDER TRAINING. TELEMERTY SHOWS SR. DENIES ANY NEEDS. SR UP WITH CALL LIGHT IN REACH
[2019-07-24 09:05] VITALS: BP 143/67
[2019-07-24] MEDS ORDERED: ELIQUIS2.5 MG PO (10:36)
[2019-07-24] MEDS ORDERED: FLOMAX0.4 MG PO (10:36)
[2019-07-24] MEDS ORDERED: ATROVENT 0.02%2.5 ML UPD (10:36)
[2019-07-24] MEDS ORDERED: AMIODARONE HCL200 MG PO (10:37)
[2019-07-24] MEDS ORDERED: FERROUS SULFAT325 MG PO (10:37)
[2019-07-24] MEDS ORDERED: NORMODYNE / TR200 MG PO (10:37)
[2019-07-24] MEDS ORDERED: HYDRALAZINE HCL50 MG PO (10:37)
[2019-07-24] MEDS ORDERED: PROCARDIA XL30 MG PO (10:38)
[2019-07-24] MEDS ORDERED: ASPIRIN325 MG PO (10:38)
[2019-07-24] MEDS ORDERED: Zocor PO (10:38)
[2019-07-24] MEDS ORDERED: BUMEX2 MG PO (10:39)
[2019-07-24] MEDS ORDERED: K-DUR20 MEQ PO (10:39)
[2019-07-24] MEDS ORDERED: COLACE100 MG PO (10:39)
[2019-07-24] MEDS ORDERED: PULMICORT0.5 MG/21 UPD (10:39)
[2019-07-24] MEDS ORDERED: REGLAN10 MG PO (10:40)
[2019-07-24] MEDS ORDERED: LINZESS145 MCG PO (10:40)
[2019-07-24] MEDS ORDERED: LEVEMIR FL100 UNIT/1 SC (10:40)
[2019-07-24] MEDS ORDERED: PROTONIX40 MG PO (10:40)
--- NOTE | 2019-07-24 11:08 | MORECARE ---
CASE MANAGEMENT DISCHARGE SUMMARY PATIENT: DEX MOSQUEDA UNIT: [id number] ADM DATE: 07/14/19 AGE: 68 : 49 SEX: M ROOM/BED: D.7319 AUTHOR: AGNESDOC PHYSICIAN: REFERRING PHYSICIAN: SONG WETZEL MD DATE OF SERVICE: 07/24/19 Discharge Plan Patient Name: DEX MOSQUEDA Facility: [facility]:[place] : 1950 Planned Disposition: Nursing Facility [facility] Cert Anticipated Discharge Date: Discharge Date: Expected LOS: Initial Reviewer: [email or web address] Initial Review Date: 07/17/2019 Generated: 07/24/19 12:08 pm Comments DCP- Discharge Planning Updated by [email or web address]: Nadir Mauricio on 07/22/19 4:[address] Patient Name: DEX MOSQUEDA Encounter No: [id number] : 1950 Primary Insurance: MEDICARE A & B Anticipated DC Date: Planned Disposition: Nursing Facility [facility] Cert External Planned Provider: [facility], LONG TERM CARE MEDICAID BED DCP follow-up note: CM RECEIVED CALL FROM [facility]IOR OF [employer] [facility] REQUESTING UPDATE. [facility] [employer] [facility] ARRIVED LATER, RECEIVED UPDATE VERBALLY FROM HAILE LYNCH. CM FAXED UPDATE TO [facility] AT [phone]. FOR DISCHARGE BACK TO [facility] AT [facility], FAX DISCHARGE INFORMATION TO [phone]. NURSE REPORT TO BE CALLED TO [facility] AT [phone]. [facility] TO ARRANGE VAN TRANSPORTATION. AURA Choi MANAGEMENT DCP- Discharge Planning Updated by [id number]: Nadir Mauricio on 07/20/19 7:[address] Patient Name: DEX MOSQUEDA Encounter No: [id number] : 1950 Primary Insurance: MEDICARE A & B Anticipated DC Date: Planned Disposition: Nursing Facility [facility] Cert External Planned Provider: [facility], LONG TERM CARE MEDICAID BED DCP follow-up note: CM FAXED UPDATE TO [facility] AT [phone]. FOR DISCHARGE BACK TO [facility] AT [facility], FAX DISCHARGE INFORMATION TO [phone]. NURSE REPORT TO BE CALLED TO [facility] AT [phone]. [facility] TO ARRANGE VAN TRANSPORTATION. Nadir Mauricio, CASE MANAGEMENT DCP- Discharge Planning Updated by [id number]: Miranda Deutsch on 07/17/19 3:[address] Patient Name: DEX MOSQUEDA Admission Status: ER Accout number: [id number] Admission Date: 07-14-2019 : 1950 Admission Diagnosis: Attending: SONG WETZEL Current LOS: 3 Anticipated DC Date: Planned Disposition: Primary Insurance: MEDICARE A & B Discharge Planning Comments: PATIENT IS CONFUSED. CM SPOKE WITH DEEP AT [facility] AND THEY WILL TAKE PATIENT BACK TO [facility]. CM WILL FOLLOW AND ASSIST. Director Of Hotel: Miranda Deutsch DCPIA - Discharge Planning Initial Assessment Updated by [email or web address]: Miranda Deutsch on 07/17/19 4:16 pm * Is the patient Alert and Oriented? No * Preadmission Environment [facility] [employer] [facility] Acute Care Facility * Facility Name [facility] * Additional services required to return to the preadmission environment? No * Can the patient safely return to the preadmission environment? Yes External Providers External Provider: [facility] Next Contact Date: 07/20/2019 Service Request Date: Service Type: Resolution: Reviewer: Comments: Last DP export: 07/22/19 4:53 Patient Name: DEX MOSQUEDA Page 08403 at 1108 All edits/amendments must be made on the electronic document DICTATION DATE: 07/24/191106 WOOD CREW SUPERVISOR: ROSALINA 07/24/191106 RPT#: [id number] DC DATE: STATUS: ADM IN [facility] [address] [place] [address] END OF REPORT
--- NOTE | 2019-07-24 11:15 | MORECARE ---
CASE MANAGEMENT DISCHARGE SUMMARY PATIENT: DEX MOSQUEDA UNIT: [id number] ADM DATE: 07/14/19 AGE: 68 : 49 SEX: M ROOM/BED: D.1119 AUTHOR: AGNES,DOC PHYSICIAN: REFERRING PHYSICIAN: SONG WETZEL MD DATE OF SERVICE: 07/24/19 Discharge Plan Patient Name: DEX MOSQUEDA Facility: [facility]:[place] : 1950 Planned Disposition: Nursing Facility [facility] Cert Anticipated Discharge Date: Discharge Date: Expected LOS: Initial Reviewer: [id number] Initial Review Date: 07/17/2019 Generated: 07/24/19 12:15 pm Comments DCP- Discharge Planning Updated by [id number]: Miranda Deutsch on 07/24/19 10:[address] Patient Name: DEX MOSQUEDA Admission Status: ER Accout number: [id number] Admission Date: 07-14-2019 : 1950 Admission Diagnosis: Attending: SONG WETZEL Current LOS: 10 Anticipated DC Date: Planned Disposition: Nursing Facility [facility] Cert Primary Insurance: MEDICARE A & B Discharge Planning Comments: PATIENT TO DC BACK TO [facility] FOR F[facility] TODAY. [facility] WILL MARGIN CLERK AT 1:30 PM. RN TO CALL REPORT TO [phone]. CM FAXED DC SUM TO [facility]. Property Man: Miranda Deutsch DCP- Discharge Planning Updated by [id number]: Nadir Mauricio on 07/22/19 4:[address] Patient Name: DEX MOSQUEDA Encounter No: [id number] : 1950 Primary Insurance: MEDICARE A & B Anticipated DC Date: Planned Disposition: Nursing Facility [facility] Cert External Planned Provider: [facility], SKILLED NURSING CARE MEDICAID BED DCP follow-up note: CM RECEIVED CALL FROM [facility] [employer] [facility] REQUESTING UPDATE. [facility] ARRIVED LATER, RECEIVED UPDATE VERBALLY FROM RN RICHIE LYNCH. CM FAXED UPDATE TO [facility] AT [phone]. FOR DISCHARGE BACK TO SKILLED NURSING CARE AT [facility], FAX DISCHARGE INFORMATION TO [phone]. NURSE REPORT TO BE CALLED TO [facility] AT [phone]. [facility] TO ARRANGE VAN TRANSPORTATION. AUR[facility] Choi MANAGEMENT DCP- Discharge Planning Updated by [id number]: Nadir Mauricio on 07/20/19 7:[address] Patient Name: DEX MOSQUEDA Encounter No: [id number] : 1950 Primary Insurance: MEDICARE A & B Anticipated DC Date: Planned Disposition: Nursing Facility [facility] External Planned Provider: [facility], LONG TERM CARE MEDICAID BED DCP follow-up note: CM FAXED UPDATE TO [facility] AT [phone]. FOR DISCHARGE BACK TO MECHANICAL SYSTEMS ENGINEER CARE AT [facility], FAX DISCHARGE INFORMATION TO [phone]. NURSE REPORT TO BE CALLED TO [facility] AT [phone]. [facility] TO ARRANGE VAN TRANSPORTATION. AURA Choi DCP- Discharge Planning Updated by [email or web address]: Miranda Deutsch on 07/17/19 3:[address] Patient Name: DEX MOSQUEDA Admission Status: ER Accout number: [id number] Admission Date: 07-14-2019 : 1950 Admission Diagnosis: Attending: SONG WETZEL Current LOS: 3 Anticipated DC Date: Planned Disposition: Primary Insurance: MEDICARE A & B Discharge Planning Comments: PATIENT IS CONFUSED. CM SPOKE WITH DEEP AT [facility] AND THEY WILL TAKE PATIENT BACK TO SKILLED NURSING CARE. CM WILL FOLLOW AND ASSIST. Property Man: Miranda Deutsch DCPIA - Discharge Planning Initial Assessment Updated by [email or web address]: Miranda Deutsch on 07/17/19 4:16 pm * Is the patient Alert and Oriented? No * Preadmission Environment Trace Evidence Technician Acute Care Facility * Facility Name [facility] * Additional services required to return to the preadmission environment? No * Can the patient safely return to the preadmission environment? Yes Last DP export: 07/24/19 10:08 Patient Name: DEX MOSQUEDA Page 32683 at 1115 All edits/amendments must be made on the electronic document DICTATION DATE: 07/24/19 1115 CHEMIST ASSISTANT: ROSALINA 07/24/19 1115 RPT#: [id number] DC DATE: STATUS: ADM IN [facility] [address] [place] [address] END OF REPORT
--- NOTE | 2019-07-24 12:00 | NUR ---
I have reviewed this patient and I concur with the Shift Assessment completed by the Licensed Practical Nurse today this shift.
--- NOTE | 2019-07-24 12:42 | NUR ---
PT DISCHARGED. PT PICKED UP BY [facility].
--- NOTE | 2019-07-24 13:14 | MORECARE ---
CASE MANAGEMENT DISCHARGE SUMMARY PATIENT: DEX MOSQUEDA UNIT: [id number] ADM DATE: 07/14/19 AGE: 68 : 49 SEX: M ROOM/BED: D.8829 AUTHOR: AGNESDOC PHYSICIAN: REFERRING PHYSICIAN: SONG WETZEL MD DATE OF SERVICE: 07/24/19 Discharge Plan Patient Name: DEX MOSQUEDA Facility: [facility]:[place] : 1950 Planned Disposition: Nursing Facility [facility] Cert Anticipated Discharge Date: Discharge Date: 07/24/2019 Expected LOS: Initial Reviewer: [id number] Initial Review Date: 07/17/2019 Generated: 07/24/19 2:14 pm Comments DCP- Discharge Planning Updated by [id number]: Miranda Deutsch on 07/24/19 10:[address] Patient Name: DEX MOSQUEDA Admission Status: ER Accout number: [id number] Admission Date: 07-14-2019 : 1950 Admission Diagnosis: Attending: SONG WETZEL Current LOS: 10 Anticipated DC Date: Planned Disposition: Nursing Facility [facility] Cert Primary Insurance: MEDICARE A & B Discharge Planning Comments: PATIENT TO DC BACK TO [facility]ENIOR CARE TODAY. [facility] WILL REMOTE SENSING ENGINEER AT 1:30 PM. RN TO CALL REPORT TO [phone]. CM FAXED DC SUM TO [facility]. Emotional Support Teacher: Miranda Deutsch DCP- Discharge Planning Updated by [email or web address]: Nadir Mauricio on 07/22/19 4:[address] Patient Name: DEX MOSQUEDA Encounter No: [id number] : 1950 Primary Insurance: MEDICARE A & B Anticipated DC Date: Planned Disposition: Nursing Facility [facility] Cert External Planned Provider: [facility], MANAGER CRITICAL CARE UNIT CARE MEDICAID BED DCP follow-up note: CM RECEIVED CALL FROM [facility] [employer] REQUESTING UPDATE. [facility] OF [facility] ARRIVED LATER, RECEIVED UPDATE VERBALLY FROM RN RICHIE LYNCH. CM FAXED UPDATE TO [facility] AT [phone]. FOR DISCHARGE BACK TO [facility] CARE AT [facility], FAX DISCHARGE INFORMATION TO [phone]. NURSE REPORT TO BE CALLED TO [facility] AT [phone]. [facility] TO ARRANGE VAN TRANSPORTATION. AURA Choi MANAGEMENT DCP- Discharge Planning Updated by [id number]: Nadir Mauricio on 07/20/19 7:[address] Patient Name: DEX MOSQUEDA Encounter No: [id number] : 1950 Primary Insurance: MEDICARE A & B Anticipated DC Date: Planned Disposition: Nursing Facility [facility] External Planned Provider: [facility], LONG TERM CARE MEDICAID BED DCP follow-up note: CM FAXED UPDATE TO [facility] AT [phone]. FOR DISCHARGE BACK TO CUSTODIAL CARE AT [facility], FAX DISCHARGE INFORMATION TO [phone]. NURSE REPORT TO BE CALLED TO [facility] AT [phone]. [facility] TO ARRANGE VAN TRANSPORTATION. AURA Choi DCP- Discharge Planning Updated by [id number]: Miranda Deutsch on 07/17/19 3:[address] Patient Name: DEX MOSQUEDA Admission Status: ER Accout number: [id number] Admission Date: 07-14-2019 : 1950 Admission Diagnosis: Attending: SONG WETZEL Current LOS: 3 Anticipated DC Date: Planned Disposition: Primary Insurance: MEDICARE A & B Discharge Planning Comments: PATIENT IS CONFUSED. CM SPOKE WITH DEEP AT [facility] AND THEY WILL TAKE PATIENT BACK TO [facility]. CM WILL FOLLOW AND ASSIST. Emotional Support Teacher: Miranda Deutsch DCPIA - Discharge Planning Initial Assessment Updated by [id number]: Miradna Deutsch on 07/17/19 4:16 pm * Is the patient Alert and Oriented? No * Preadmission Environment Major Sales Associate Acute Care Facility * Facility Name [facility] * Additional services required to return to the preadmission environment? No * Can the patient safely return to the preadmission environment? Yes Coverage Notice Reviewer: [id number] - Miranda Deutsch Notice Issued Date-Time: 07/24/2019 11:45 Notice Type: IM Discharge Notice Notice Delivered To: Patient Relationship to Patient: Associate Relations Specialist Name: Delivery Method: HAND - Hand Delivered Margarita Days: Prior Verbal Notification: Recipient Understood Notice: Yes Recipient Signature: Yes Med Rec Note Co-signed by Attending: Coverage Notice Comment: Last DP export: 07/24/19 10:15 Patient Name: DEX MOSQUEDA Page 83639 at 1314 All edits/amendments must be made on the electronic document DICTATION DATE: 07/24/191313 SHALE PLANER OPERATOR: ROSALINA 07/24/191313 RPT#: [id number] DC DATE:07/24/19 STATUS: DIS IN [facility] [address] [facility] [place] [address] END OF REPORT
== END 2019-07-24 12:44 | DRG 291 ==
LOC: D.ER 16:27 → D.M2 18:01
PROVIDERS: Family Medicine; Internal Medicine; ADMIT Family Medicine; ATTEND Family Medicine
DX: I13.0 Hypertensive heart and chronic kidney disease with heart failure and stage 1 through stage 4 chronic kidney disease, or unspecified chronic kidney disease (principal); I50.23 Acute on chronic systolic (congestive) heart failure; N18.4 Chronic kidney disease, stage 4 (severe); I69.354 Hemiplegia and hemiparesis following cerebral infarction affecting left non-dominant side; N17.9 Acute kidney failure, unspecified; J96.11 Chronic respiratory failure with hypoxia; E11.22 Type 2 diabetes mellitus with diabetic chronic kidney disease; D50.9 Iron deficiency anemia, unspecified; E11.40 Type 2 diabetes mellitus with diabetic neuropathy, unspecified; I48.0 Paroxysmal atrial fibrillation; G89.29 Other chronic pain; M54.5 Low back pain; Z74.09 Other reduced mobility; E78.5 Hyperlipidemia, unspecified; K21.9 Gastro-esophageal reflux disease without esophagitis; F41.8 Other specified anxiety disorders; N40.1 Benign prostatic hyperplasia with lower urinary tract symptoms; R33.8 Other retention of urine; J44.9 Chronic obstructive pulmonary disease, unspecified; E66.01 Morbid (severe) obesity due to excess calories; Z68.37 Body mass index [BMI] 37.0-37.9, adult